=== PATIENT | male | born 1955 | race Caucasian/White ===

== ENCOUNTER → 2018-06-27 | Outpatient (REF) | payer MEDICARE, OTHER ==
[~2018-06-27] MED LIST: ASPIRIN EC81 MG PO; MULTI VIT PO; PRILOSEC20 MG/CAP PO; PROTONIX40 M2 PO; ROBITUSSIN AC10 ML PO; ULTRAM50 M1 PO; ZOFRAN ODT4 MG PO; ZYRTEC10 MG PO
[2018-06-27 11:06] LABS: HEMATOCRIT 43.4 % (39.0-50.0); IMMATURE GRANULOCYTES 0.3 % (0.0-5.0); MEAN CELL VOLUME 91.4 fL CALC (80.0-100.0); MEAN CORPUSCULAR HGB 31.6 pG CALC (26.0-32.0); MEAN CORPUSCULAR HGB CONC 34.6 g/L CALC (32.0-36.0); NEUT# 3.9 thou/uL (1.82-7.42); RED BLOOD COUNT 4.75 mill/uL (4.70-6.10); RED CELL DISTRI WIDTH 12.2 % (11.5-15.5)
[2018-06-27 11:20] LABS: ALBUMIN 4.2 g/dL (3.2-5.0); ALKALINE PHOSPHATASE 51 u/l (38-126); ANION GAP 12 (6-22 (CALC)); BILIRUBIN, TOTAL 0.4 mg/dL (0.0-1.4); BUN 16 mg/dL (8-23); BUN/CREATININE RATIO 17 (12-20 (CALC)); CARBON DIOXIDE 28 mmol/l (22-30); CHLORIDE 103 mmol/l (95-108); CREATININE 0.9 mg/dL (0.7-1.3); GFR > 60 ML/MIN (>=60 (CALC)); GFR FOR AFR.AMER. > 60 ML/MIN (>=60 (CALC)); POTASSIUM 4.5 mmol/l (3.5-5.1); SGOT/AST 29 u/l (19-48); SODIUM 139 mmol/l (137-146); TOTAL PROTEIN 7.5 g/dL (6.3-8.2)
== END | disposition home or self-care (01) ==
LOC: LAB 10:31
PROVIDERS: ATTEND Internal Medicine
DX: D50.9 Iron deficiency anemia, unspecified (principal); I10 Essential (primary) hypertension; Z12.5 Encounter for screening for malignant neoplasm of prostate

== ENCOUNTER 2022-08-05 10:50 | Emergency (ER) | payer MEDICARE ==
[~2022-08-05] VITALS: Ht 175.3 cm; Wt 87.0 kg
[2022-08-05 11:03] VITALS: BP 134/67
[2022-08-05] MEDS ORDERED: LOSARTAN POTASS25 MG PO (11:06)
[2022-08-05 11:09] VITALS: BP 134/67
[2022-08-05] MEDS ORDERED: KEFLEX500 MG PO (11:37)
== END 2022-08-05 11:44 | disposition home or self-care (01) ==
LOC: ED 10:50
DX: S11.94XA Puncture wound with foreign body of unspecified part of neck, initial encounter (principal); I10 Essential (primary) hypertension; E78.5 Hyperlipidemia, unspecified; W60.XXXA Contact with nonvenomous plant thorns and spines and sharp leaves, initial encounter; Y93.H2 Activity, gardening and landscaping; Y92.007 Garden or yard of unspecified non-institutional (private) residence as the place of occurrence of the external cause

== ENCOUNTER 2023-10-17 16:31 | Emergency (ER) | payer MEDICARE ==
[~2023-10-17] VITALS: Ht 175.3 cm; Wt 90.7 kg
[~2023-10-17 16:31] MED LIST changes: +KEFLEX500 MG PO; +LOSARTAN POTASS25 MG PO
[2023-10-17 19:56] VITALS: BP 132/62
[2023-10-17] MEDS ORDERED: MEDDOSEPAK PO (19:58)
[2023-10-17] MEDS ORDERED: MELOXICAM7.5 MG PO (19:58)
== END 2023-10-17 20:47 | disposition home or self-care (01) ==
LOC: ED 16:31
DX: M25.562 Pain in left knee (principal); M25.462 Effusion, left knee; I10 Essential (primary) hypertension; E78.5 Hyperlipidemia, unspecified

== ENCOUNTER 2024-10-21 17:22 | Emergency (ER) | payer MEDICARE ==
[~2024-10-21] VITALS: Ht 175.3 cm; Wt 98.0 kg
[2024-10-21] VITALS (12 sets, daily range): BP systolic 96–122; BP diastolic 53–68
[~2024-10-21 17:22] MED LIST changes: +MEDDOSEPAK PO; +MELOXICAM7.5 MG PO
[2024-10-21] MEDS ORDERED: dilTIAZem HCL 50 MG/10 ML SDV IV ONE (17:40)
[2024-10-21] MEDS ORDERED: SODIUM CHLORIDE 0.9% 500 ML IV ONE (17:40)
[2024-10-21 17:50] LABS: BASO% 0.4 % (0-3); EOS% 0.7 % (0-8); HEMATOCRIT 45.5 % (39.0-50.0); HEMOGLOBIN 15.5 g/dl (14.0-18.0); IMMATURE GRANULOCYTES 0.1 % (0.0-5.0); LYMPH% 30.3 % (15-41); MEAN CELL VOLUME 92.3 fL CALC (80.0-100.0); MEAN CORPUSCULAR HGB 31.4 pG CALC (26.0-32.0); MEAN CORPUSCULAR HGB CONC 34.1 g/dL CAL (32.0-36.0); MONO% 8.5 % (2-13); NEUT# 4.16 thou/uL (1.82-7.42); RED BLOOD COUNT 4.93 mill/uL (4.70-6.10); RED CELL DISTRI WIDTH 12.3 % (11.5-15.5)
[2024-10-21] MEDS ORDERED: FLECAINIDE50 MG PO (17:51)
[2024-10-21 18:02] LABS: ALBUMIN 4.3 g/dL (3.2-5.0); ALKALINE PHOSPHATASE 66 u/l (38-126); ANION GAP 12 (6-22 (CALC)); BILIRUBIN, TOTAL 0.7 mg/dL (0.2-1.3); BUN 21 mg/dL (8-23); BUN/CREATININE RATIO 15 (12-20 (CALC)); CARBON DIOXIDE 24 mmol/l (22-30); CHLORIDE 107 mmol/l (95-108); CREATININE 1.4 mg/dL (0.7-1.3); ESTIMATED GFR 54 ML/MIN (>=90 (CALC)); POTASSIUM 4.6 mmol/l (3.5-5.1); SGOT/AST 45 u/l (19-48); SODIUM 139 mmol/l (137-146); TOTAL PROTEIN 7.3 g/dL (6.3-8.2)
[2024-10-21 18:33] LABS: TSH, 3RD GENERATION 1.82 uIU/mL (0.47 - 4.68)
== END 2024-10-21 20:20 | disposition home or self-care (01) ==
LOC: ED 17:22
PROVIDERS: Family Medicine
DX: I48.91 Unspecified atrial fibrillation (principal); I10 Essential (primary) hypertension; E78.5 Hyperlipidemia, unspecified